=== PATIENT | female | born 1980 | race Caucasian/White ===

== ENCOUNTER 2024-01-17 21:03 | Emergency (ER) | payer BC, SELFPAY ==
[2024-01-17 21:13] VITALS: BP 119/84; PULSE 71; RESP 18; TEMP 36.8; O2SAT 100; BMI 21.9
--- NOTE | 2024-01-17 21:42 | ED_ITS ---
HPI - Recheck/Abnormal Lab/Rx General Chief Complaint: Recheck/Abnormal Lab/Rx Stated Complaint: check for strep Time Seen by Provider: 01/17/24 21:33 Source: patient Mode of arrival: Ambulatory Limitations: no limitations History of Present Illness HPI narrative: 43-year-old female with no reported medical issues who presents with concerns for strep. Several family members have tested positive. Patient currently asymptomatic. No complaints of fevers cold cough congestion, sore throat or other issues. Patient states no daily medications. Reports allergy to sulfa. No tobacco, alcohol or recreational drugs. Patient is currently traveling with family from [place]. Related Data Previous Rx's Medication Instructions Recorded amoxicillin 500 mg tablet 500 mg PO TID #30 tabs 01/17/24 Allergies Allergy/AdvReac Type Severity Reaction Status Date / Time Sulfa (Sulfonamide Allergy Hives Verified 01/17/24 21:13 Antibiotics) Review of Systems Review of Systems ROS Unobtainable: All systems reviewed & are unremarkable except as noted in HPI and below Patient History Social History Smoking Status: Never smoker Smoking Status: Never smoker Substance Use Type: does not use Exam Narrative Exam Narrative: GEN: well nourished, well appearing female, alert and oriented x 3, patient appears to be in mild distress. HEENT: Atraumatic, pupils are equal round reactive to light, extraocular movements are intact, nares are clear, TMs are clear with no fluid, there is no conjunctival pallor. Throat is clear without any exudates, erythema, tonsillar enlargement or uvular deviation, no cervical lymphadenopathy HEART: Regular rate and rhythm without murmur, clicks, rubs. LUNGS:Lungs clear to auscultation, no wheezes, rales, crackles, chest moves symmetrically ABD:bowel sounds normal, soft, non-tender, no guarding, rebound, rigidity, no masses noted, no hepatosplenomegaly MSCL: Full range of motion, normal gait NEURO:CN 2-12 intact, sensation normal SKIN: No rash, erythema or other skin changes Initial Vital Signs Initial Vital Signs: Vital Signs Temperature 98.3 F 01/17/24 21:13 Pulse Rate 71 01/17/24 21:13 Respiratory Rate 18 01/17/24 21:13 Blood Pressure 119/84 01/17/24 21:13 Pulse Oximetry 100 01/17/24 21:13 Oxygen Delivery Method Room Air 01/17/24 21:13 Course Orders Ordered: ED Orders 01/17/24 21:20 Strep Grp A by PCR Rapid Stat Vital Signs Vital signs: Vital Signs - 8 hr 01/17/24 21:13 01/17/24 22:38 Temperature 98.3 F 98.5 F Pulse Rate 71 66 Respiratory Rate 18 18 Blood Pressure 119/84 125/78 Pulse Oximetry 100 98 Oxygen Delivery Method Room Air Room Air MDM - Recheck/Abnormal Lab/Rx Lab Data Labs: Lab Results 01/17/24 Range/Units 21:20 Group A Strep (PCR) Negative (Negative) MDM Narrative Medical decision making narrative: Patient's rapid strep is negative, several family members have been positive. They are currently asymptomatic and traveling from [place] of state so we will give a prescription to fill if they become symptomatic. Discharge Plan Departure Patient Disposition: Home Clinical Impression: Patient request for diagnostic testing Activity Restrictions/Additional Instructions: You are negative on your strep test today. If you develop symptoms since you have multiple family members who are positive you can start the antibiotic that was prescribed. Prescription was printed and included in your discharge papers. Prescriptions: New amoxicillin 500 mg tablet 500 mg PO TID Qty: 30 0RF Stand Alone Forms: Patient Portal/API
[2024-01-17 21:44] LABS: Strep Grp A by PCR Rapid Negative (Negative)
[2024-01-17 22:38] VITALS: BP 125/78; PULSE 66; RESP 18; TEMP 36.9; O2SAT 98
== END 2024-01-17 22:38 | disposition home or self-care (01) ==
PROVIDERS: Emergency Provider Emergency Medicine
DX: Z20.828 Contact with and (suspected) exposure to other viral communicable diseases (principal)
CPT/HCPCS: 87651; 99281; 99282